=== PATIENT | male | born 1970 | race Caucasian/White ===

== ENCOUNTER 2020-04-26 16:08 | Emergency (ER) | payer BC ==
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
[2020-04-26 16:27] VITALS: O2SAT 98
[2020-04-26] MEDS ORDERED: MOTRIN 600 MG PO ONE (17:06)
[2020-04-26] MEDS ORDERED: TYLENOL 325 MG PO STA (17:06)
[2020-04-26] MEDS ORDERED: MOTRIN 600 MG ONE (17:23)
[2020-04-26] MEDS ORDERED: TYLENOL 325 MG ONE (17:24)
[2020-04-26 17:49] VITALS: BP 170/80; PULSE 90
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
== END 2020-04-26 18:13 | disposition home or self-care (01) ==
LOC: ED 16:08
DX: S83.92XA Sprain of unspecified site of left knee, initial encounter (principal); V86.55XA Driver of 3- or 4- wheeled all-terrain vehicle (ATV) injured in nontraffic accident, initial encounter; S93.402A Sprain of unspecified ligament of left ankle, initial encounter; S99.922A Unspecified injury of left foot, initial encounter
CPT/HCPCS: 73562; 73610; 73630; 99284; A9270-GY